=== PATIENT | male | born 1945 | race Caucasian/White ===

== ENCOUNTER → 2017-01-18 | Outpatient (CLI) | payer BC ==
[~2017-01-18] MED LIST: CIPR-255 PO; CLC100 PO; DTR5 PO; GLC500 PO; LEVO25TA5 PO; LOSA100T2 PO; LVT/20 PO; SIMV40TA2 PO; VALA1TAB PO
[2017-01-18 12:26] LABS: BASO % 0.3 %; BASO ABS # 0.02 K/uL (0-0.2); COMPLETE YES; EOS % 3.5 %; HEMATOCRIT 40.9 % (42-52); IG% 0.2 %; LYMPH % 31.3 %; LYMPH ABS # 1.97 K/uL (1.2-3.4); MEAN CELL VOLUME 87.4 fL (80-100); MEAN CORPUSCULAR HEMOGLOBIN 27.8 pg (25-34); MEAN CORPUSCULAR HGB CONC 31.8 g/dl (32-36); MEAN PLATELET VOLUME 10.1 fL (7.4-10.4); MONO % 12.4 %; NEUT % 52.3 %; PLATELET COUNT 355 K/uL (130-400); RED BLOOD COUNT 4.68 M/uL (4.7-6.1); WHITE BLOOD COUNT 6.29 K/uL (4.8-10.8)
[2017-01-18 12:56] LABS: RATIO 11.8 mcg/mg (0-30.0)
[2017-01-18 13:04] LABS: PROSTATE SPECIFIC ANTIGEN 1.09 ng/ml (0.000-4.000); THYROID STIMULATING HORMONE 2.28 uIu/ml (0.300-4.500)
[2017-01-18 13:40] LABS: ESTIMATED AVERAGE GLUCOSE 131 mg/dl; HA1C FLAG Normal (Normal)
== END | disposition home or self-care (01) ==
LOC: C.LABBFT 08:21
PROVIDERS: ATTEND Internal Medicine
DX: E11.9 Type 2 diabetes mellitus without complications (principal); E03.9 Hypothyroidism, unspecified; D64.9 Anemia, unspecified; N40.1 Benign prostatic hyperplasia with lower urinary tract symptoms; R39.9 Unspecified symptoms and signs involving the genitourinary system; S83.209A Unspecified tear of unspecified meniscus, current injury, unspecified knee, initial encounter; X58.XXXA Exposure to other specified factors, initial encounter

== ENCOUNTER → 2017-12-07 | Day surgery (SDC) | payer BC ==
[2017-11-23 07:54] VITALS: Ht 170.2 cm; Wt 90.9 kg
[~2017-12-07] VITALS: Ht 170.2 cm; Wt 90.9 kg
[~2017-12-07] MED LIST changes: -CIPR-255 PO; -CLC100 PO; +CODCAP4 PO; -DTR5 PO; +GARL500C5 PO; +LIDOCAINE HCL 2% 2 ML VIAL (20MG/ML) ONE; +MULT-190 PO; +PROPOFOL IV EMULSION 10 MG/ML 20 ML VIAL IV ONE; +SODIUM CHLORIDE 0.9% 500ML 500 ML IV ONE; -VALA1TAB PO; +VALA500T60 PO
--- NOTE | 2017-12-07 08:38 | Endo History and Physical ---
History & Physical Date of Service: Dec 07, 2017. Chief Complaint: history of tubular adenoma Referring Physician: Dr. Ellis Lopez History of Present Illness 72 yo CM who presents for colonoscopy secondary to history of colon polyps. Past Surgical History Hx Cardiac Surgery: No Hx Internal Defibrillator: No Hx Pacemaker: No Hx Abdominal Surgery: No Hx of Implantable Prosthesis: No Hx Post-Op Nausea and Vomiting: No Hx Cancer Surgery: No Hx Thoracic Surgery: No Hx Orthopedic: Yes (EXCISION CYST L WRIST) Hx Urinary Tract Surgery: Yes (CYSTO LITHOTRIPSY, TURP) Family History None Social History Smoking Status: Never Smoker Hx Substance Use: No Hx Alcohol Use: No Allergies Coded Allergies: No Known Allergies (Verified , 12/07/17) Current Medications Reported Home Medications Medications Dose Route/Sig Max Daily Dose Days Date Category Dose Instructions Cod Liver Oil 1 Cap Cap 1 Cap PO QAM 11/23/17 Reported Ocuvite Preservision (Multivitamins/Minerals) 1 Tab Tab 1 Tab PO QAM 11/23/17 Reported Garlic 500 Mg Cap 1 Cap PO QAM 11/23/17 Reported Valtrex (Valacyclovir HCl) 500 Mg Tab 500 Mg PO UD 11/23/17 Reported Metformin HCl 500 Mg Tab 500 Mg PO TIDM 06/23/16 Reported Hyzaar (Losartan Potassium & Hydrochlo) 1 Tab Tab 1 Tab PO QAM 06/23/16 Reported 50/12.5 MG Levothyroxine Sodium 25 Mcg Tab 25 Mcg PO QAM 06/23/16 Reported Levitra (Vardenafil HCl) 20 Mg Tab 20 Mg PO DIRECTED 06/23/16 Reported Zocor (Simvastatin) 40 Mg Tab 40 Mg PO HS 02/10/07 Reported Vital Signs Weight (Kilograms): 90.91 Height (Feet): 5 Height (Inches): 7 Date Time Temp Pulse Resp B/P (MAP) Pulse Ox O2 Delivery O2 Flow Rate FiO2 12/07/17 08:11 36.8 59 20 141/70 (93) 97 Room Air Physical Exam General Appearance: WD/WN, no apparent distress Respiratory/Chest: Auscultation: breath sounds normal Cardiovascular: Heart Auscultation: RRR Abdomen: Bowel Sounds: normal Inspection & Palpation: soft, non-distended, no tenderness, guarding & rebound Assessment and Plan Assessment: 72 yo CM who presents for colonoscopy secondary to history of colon polyps. Plan: Proceed with colonoscopy.
--- NOTE | 2017-12-07 09:04 | GI REPORT ---
Procedure Date: 12/07/2017 8:41 AM Procedure: Colonoscopy Indications: High risk colon cancer surveillance: Personal history of colonic polyps Medicines: Monitored Anesthesia Care Complications: No immediate complications. Estimated Blood Loss: Estimated blood loss: none. Procedure: Pre-Anesthesia Assessment: - Prior to the procedure, a History and Physical was performed, and patient medications and allergies were reviewed. The patient's tolerance of previous anesthesia was also reviewed. The risks and benefits of the procedure and the sedation options and risks were discussed with the patient. All questions were answered, and informed consent was obtained. Prior Anticoagulants: The patient has taken no previous anticoagulant or antiplatelet agents. ASA Grade Assessment: II - A patient with mild systemic disease. After reviewing the risks and benefits, the patient was deemed in satisfactory condition to undergo the procedure. After I obtained informed consent, the scope was passed under direct vision. Throughout the procedure, the patient's blood pressure, pulse, and oxygen saturations were monitored continuously. The Scope was introduced through the anus and advanced to the terminal ileum. The colonoscopy was performed without difficulty. The patient tolerated the procedure well. The quality of the bowel preparation was good. The terminal ileum, ileocecal valve, appendiceal orifice, and rectum were photographed. Findings: The perianal and digital rectal examinations were normal. A 5 mm polyp was found in the sigmoid colon. The polyp was sessile. The polyp was removed with a hot snare. Resection and retrieval were complete. A 14 mm polyp was found in the sigmoid colon. The polyp was pedunculated. The polyp was removed with a hot snare. Resection and retrieval were complete. To prevent bleeding after the polypectomy, one hemostatic clip was successfully placed (MR conditional). There was no bleeding at the end of the procedure. Multiple small-mouthed diverticula were found in the sigmoid colon. Non-bleeding internal hemorrhoids were found during retroflexion. The hemorrhoids were small. Impression: - One 5 mm polyp in the sigmoid colon, removed with a hot snare. Resected and retrieved. - One 14 mm polyp in the sigmoid colon, removed with a hot snare. Resected and retrieved. Clip (MR conditional) was placed. - Diverticulosis in the sigmoid colon. - Non-bleeding internal hemorrhoids. Recommendation: - Resume previous diet. - Continue present medications. - Repeat colonoscopy for surveillance based on pathology results. - Return to primary care physician as previously scheduled. Bob Art DO 12/07/2017 9:03:58 AM This report has been signed electronically. Note Initiated On: 12/07/2017 8:41 AM I attest to the content of the Intraoperative Record and orders documented therein, exceptions below
--- NOTE | 2017-12-07 09:27 | Discharge Instructions ---
Endoscopy Patient Instructions Date / Procedure(s) Performed Dec 07, 2017. Colonoscopy Allergy Information Coded Allergies: No Known Allergies (Verified , 12/07/17) Discharge Date / Findings Dec 07, 2017. Colon polyps Diverticulosis Internal hemorrhoids Medication Instructions Stopped Medication(s): stopped all meds on Wednesday except Zocor OK to resume all medications today as prescribed Reported Home Medications Medications Dose Route/Sig Max Daily Dose Days Date Category Dose Instructions Cod Liver Oil 1 Cap Cap 1 Cap PO QAM 11/23/17 Reported Ocuvite Preservision (Multivitamins/Minerals) 1 Tab Tab 1 Tab PO QAM 11/23/17 Reported Garlic 500 Mg Cap 1 Cap PO QAM 11/23/17 Reported Valtrex (Valacyclovir HCl) 500 Mg Tab 500 Mg PO UD 11/23/17 Reported Metformin HCl 500 Mg Tab 500 Mg PO TIDM 06/23/16 Reported Hyzaar (Losartan Potassium & Hydrochlo) 1 Tab Tab 1 Tab PO QAM 06/23/16 Reported 50/12.5 MG Levothyroxine Sodium 25 Mcg Tab 25 Mcg PO QAM 06/23/16 Reported Levitra (Vardenafil HCl) 20 Mg Tab 20 Mg PO DIRECTED 06/23/16 Reported Zocor (Simvastatin) 40 Mg Tab 40 Mg PO HS 02/10/07 Reported Provider Instructions Activity Restrictions - No exercising or heavy lifting for 24 hours. - Do not drink alcohol the day of the procedure. - Do not drive a car or operate machinery until the day after the procedure. - Do not make any important decisions or sign important papers in 24 hours after the procedure. Following Day: - Return to full activity which may include returning to work/school. Diet Start your diet with liquids and light foods (jello, soup, juice, toast). Then eat your usual diet if not nauseated. Treatment For Common After Affects For mild abdominal pain, bloating, or excessive gas: - Rest - Eat lightly - Lie on right side Follow-Up Information Follow-up with Dr. Ellis Lopez as scheduled Anesthesia Information What You Should Know You have had a procedure that required some medicine to reduce anxiety and discomfort. This treatment is called moderate sedation. After receiving the treatment, you may be sleepy, but you will be able to breathe on your own. The effects of the treatment may last for several hours. Follow these instructions along with Activity/Diet recommendations noted above: * Do NOT do anything where dizziness or clumsiness would be dangerous. * Rest quietly at home today, then you can be up and about tomorrow. * Have a responsible person stay with you the rest of today. * You may have had an I.V. today. If so, you may take the dressing off later today. Recommendations Call your doctor if: * Trouble breathing * Continuous vomiting for more than 24 hours * Temperature above 101 degrees * Severe abdominal pain or bloating * Pain not relieved by pain medicine ordered * There is increased drainage or redness from any incision * A large amount of rectal bleeding greater than 2-3 tablespoons. (If you had a polyp/s removed or have hemorrhoids, a small amount of blood - from the rectum is to be expected.) * You have any unanswered questions or concerns. IN THE EVENT OF A SERIOUS EMERGENCY, GO TO THE NEAREST EMERGENCY ROOM Your discharge instructions were prepared by provider Bob Art. Patient Instructions Signature Page Wayne Saucedo Patient (or Guardian) Signature/Date: I have read and understand the instructions given to me by my caregivers. Caregiver/RN/Doctor Signature/Date: The above-named patient and/or guardian has received patient instructions on this date. + Original Patient Signature Page (only) stays with chart. Please make copy for patient.
[2017-12-07 09:38] VITALS: BP 107/68; PULSE 51; O2SAT 96
--- NOTE | 2017-12-07 09:49 | Anesthesiology Progress Note ---
Anesthesia Post Op Note Date & Time Dec 07, 2017 at 09:49 Vital Signs Pain Intensity: 0 Vital Signs Past 12 Hours Date Time Temp Pulse Resp B/P (MAP) Pulse Ox O2 Delivery O2 Flow Rate FiO2 12/07/17 09:38 51 18 107/68 (81) 96 Room Air 12/07/17 09:22 61 18 111/69 (83) 96 Room Air 12/07/17 09:06 55 16 90/60 (70) 95 Room Air 12/07/17 08:11 36.8 59 20 141/70 (93) 97 Room Air Notes Mental Status: alert / awake / arousable, participated in evaluation Pt Amnestic to Procedure: Yes Nausea / Vomiting: adequately controlled Pain: adequately controlled Airway Patency, RR, SpO2: stable & adequate BP & HR: stable & adequate Hydration State: stable & adequate Anesthetic Complications: no major complications apparent
== END | disposition home or self-care (01) ==
LOC: C.GI 07:47
PROVIDERS: ATTEND Internal Medicine
DX: Z12.11 Encounter for screening for malignant neoplasm of colon (principal); D12.5 Benign neoplasm of sigmoid colon; K57.30 Diverticulosis of large intestine without perforation or abscess without bleeding; K64.8 Other hemorrhoids; Z86.010 Personal history of colon polyps; Z79.899 Other long term (current) drug therapy

== ENCOUNTER → 2018-01-04 | Outpatient (CLI) | payer BC ==
[~2018-01-04] MED LIST changes: -LIDOCAINE HCL 2% 2 ML VIAL (20MG/ML) ONE; -PROPOFOL IV EMULSION 10 MG/ML 20 ML VIAL IV ONE; -SODIUM CHLORIDE 0.9% 500ML 500 ML IV ONE
--- NOTE | 2018-01-04 13:53 | DIAGNOSTIC IMAGING REPORT ---
[facility] CLINICAL HISTORY: 72 years-old Male presenting with N40.1 Benign prostatic hyperplasia with urinary [id number]. TECHNIQUE: Single supine view of the abdomen was obtained. COMPARISON: CT from 05/25/2016 and plain radiograph from 05/14/2016. FINDINGS: Nonobstructive bowel gas pattern. No gross pneumoperitoneum. Previously noted bladder calculi projecting over the right hemipelvis are no longer visualized. Persistent calculus at the lower pole of the left kidney. Stable distribution of left hemipelvic phleboliths. No right renal calculi or ureteral calculi. Osseous structures normal. IMPRESSION: 1. Stable left renal calculus. Electronically signed by: Nick Barber M.D. 01/04/2018 1:51 PM Dictated Date/Time: 01/04/2018 1:50 PM
== END | disposition home or self-care (01) ==
LOC: C.RAD 13:05
PROVIDERS: ATTEND Urology
DX: N40.1 Benign prostatic hyperplasia with lower urinary tract symptoms (principal)

== ENCOUNTER → 2018-02-04 | Outpatient (CLI) | payer BC ==
[2018-02-04 12:52] LABS: ALBUMIN 3.3 gm/dl (3.4-5.0); ALT/SGPT 20 U/L (12-78); AST/SGOT 21 U/L (15-37); BLOOD UREA NITROGEN 21 mg/dl (7-18); CALCIUM 8.8 mg/dl (8.5-10.1); CARBON DIOXIDE 28 mmol/L (21-32); CREATININE 0.91 mg/dl (0.60-1.40); GLUCOSE 94 mg/dl (70-99); POTASSIUM 3.5 mmol/L (3.5-5.1); SODIUM 141 mmol/L (136-145)
[2018-02-04 13:01] LABS: HEMOGLOBIN A1C 6.1 % (4.5-5.6)
[2018-02-04 13:02] LABS: ALKALINE PHOSPHATASE 89 U/L (45-117); TOTAL PROTEIN 7.1 gm/dl (6.4-8.2)
== END | disposition home or self-care (01) ==
LOC: C.LABBFT 07:32
PROVIDERS: ATTEND Nurse Practitioner
DX: E03.9 Hypothyroidism, unspecified (principal); E11.9 Type 2 diabetes mellitus without complications; I10 Essential (primary) hypertension